=== PATIENT | female | born 1965 | race Caucasian/White ===

== ENCOUNTER 2017-02-25 17:42 | Emergency (ER) | payer SELFPAY ==
[~2017-02-25 17:42] MED LIST: CLIN150C14 PO; MUPI22OI2 TP
[2017-02-25 17:53] VITALS: BP 133/83
--- NOTE | 2017-02-25 18:17 | PHYS DOC ---
General Chief Complaint: SHOULDER INJURY Stated Complaint: SHOULDER INJURY Time Seen by MD: 18:02 Source: patient Exam Limitations: no limitations Problems: History of Present Illness Initial Comments Patient is a 51-year-old female who comes to the ED complaining of right shoulder pain. Patient states that for the past month or so she's had worsening right shoulder pain. She says she is trying massage therapy, TENS unit, heat and ice, and over- the-counter medications without any relief. She denies any trauma, strenuous activity, heavy lifting, repetitive motions. No numbness tingling weakness or radiating symptoms she denies any neck stiffness or pain. She says the past day or so symptoms worsen to the point where she cannot raise her arm. To localize her discomfort she points to the anterolateral shoulder and describes the pain as sharp and stabbing moderate to severe with movement at rest. Denies any prior injury to that shoulder. Onset: other Severity: severe Pain/Injury Location: right shoulder Method of Injury: unknown Modifying Factors: improves with immobilization, worse with jarring, worse with movement, improves with rest Allergies: Coded Allergies: No Known Drug Allergies (Unverified , 01/03/16) Past Medical History Medical History: no pertinent history Surgical History: no surgical history Social History Smoker: non-smoker Alcohol: none Drugs: none Review of Systems Constitutional: denies chills, denies diaphoresis, denies fever, denies malaise Respiratory: denies cough, denies shortness of breath Cardiovascular: denies chest pain, denies palpitations Gastrointestinal: denies nausea, denies vomiting Genitourinary: denies frequency, denies hematuria Musculoskeletal: see HPI Psychiatric/Neurological: see HPI Physical Exam General Appearance: WD/WN, no apparent distress HEENT: normal ENT inspection Neck: non-tender, full range of motion, supple Cardiovascular/Respiratory: normal peripheral pulses, no respiratory distress Shoulder: limited ROM (right shoulder: No palpable bony tenderness or deformity , there is supraspinatus and infraspinatus tenderness as well as tenderness at the coracoid. Active range of motion is limited to less than 90 of abduction, ) Neurologic/Tendon: normal sensation, normal motor functions, responds to pain Psychiatric: alert, oriented x 3 Skin: normal color, warm/dry Orders, Labs, Meds I discussed treatment options. I discussed imaging the lack of benefit in the absence trauma. I discussed conservative treatment with swelling as well as orthopedics or MRI follow-up. Patient expressed agreement and understanding of the treatment plan and her right upper extremity was neurovascularly intact after placed in the sling. Departure Time of Disposition: 18:13 Disposition: 01 HOME, SELF-CARE Diagnosis: Internal derangement right shoulder NOS Condition: GOOD Patient Instructions: [facility] - Routine Care for Injuries, [id number], Shoulder Pain Additional Instructions: [facility], see handout. Wear right arm sling until doctor follow up. No use right arm until cleared by doctor. OTC tylenol/ibuprofen as needed. As discussed, you will need to follow up with a doctor. You may require further imaging (MRI or MR arthrogram) or referrals (orthopedics , PT/OT, pain management). You'll need to see a primary care doctor to schedule imaging/referrals etc. ED staff will provide you a list of local doctors accepting new patients, and can highlight those who accept walk-in hours. Call tomorrow morning to schedule next available appointment. Return to ED with new or changing symptoms. TEREZA MCINTOSH DO Feb 25, 2017 18:17
== END 2017-02-25 18:28 | disposition home or self-care (01) ==
LOC: ER 17:42
DX: M24.811 Other specific joint derangements of right shoulder, not elsewhere classified (principal)
CPT/HCPCS: 99282